=== PATIENT | female | born 1980 | race Caucasian/White ===

== ENCOUNTER 2018-05-28 09:54 | Outpatient (REF) | payer MEDICAID, SELFPAY ==
[2018-05-28 19:03] LABS: Cholesterol 216 mg/dL (50-200); Glucose 97 mg/dL (70-100); HDL Cholesterol 76 mg/dL (40-60); LDL CHOLESTEROL 121 mg/dL (<100); TSH 2.14 uIU/mL (0.358-3.74); Triglyceride 57 mg/dL (30-150)
== END 2018-05-28 10:14 ==
LOC: NCHCN 09:54
PROVIDERS: PCP Family Medicine; Visit Provider Nurse Practitioner Family
DX: N92.6 Irregular menstruation, unspecified (principal); Z00.00 Encounter for general adult medical examination without abnormal findings
CPT/HCPCS: 80061; 82947; 83721; 84443

== ENCOUNTER 2018-09-14 16:15 | Outpatient (REF) | payer MEDICAID, SELFPAY ==
--- NOTE | 2018-09-14 15:30 | SKI_PTH ---
PATIENT: Patito Scott LOC: [facility] U#:[id number] AGE/SX: 37/F ROOM: RE09/14/[address]: Sharonda Hewitt : 1980 BED: DIS: 09/14/2018 SPEC #: [id number] RECD: 09/14/18 17:16 STATUS: KARLA HIGGINS #: [id number] DOMINIK: 09/14/18 15:[address]: Sharonda Hewitt DEPT: Surgical Specimen RECD BY: Lanie Parikh ENTERED: 09/14/18 17:17 SP TYPE: COLLIN SAMANIEGO DR: Camilla Kasper Tissues: 1 - SKIN BIOPSY(SHAVE/PUNCH) Procedures: SKIN LEVEL 4 Comments: [id number]
== END 2018-09-14 16:35 ==
LOC: LBN 16:15
PROVIDERS: PCP Family Medicine; Visit Provider Surgery
DX: D22.5 Melanocytic nevi of trunk (principal)
CPT/HCPCS: 88305

== ENCOUNTER 2019-05-04 15:16 | Outpatient (REF) | payer MEDICAID, SELFPAY ==
[2019-05-04 19:38] LABS: Anion Gap 12.1 mmol/L (3-11); BUN 14 mg/dL (7-18); CO2 23.9 mmol/L (21.0-32.0); CREATININE 0.86 mg/dL (0.55-1.02); Calcium 8.9 mg/dL (8.5-10.1); Chloride 105 mmol/L (98-107); Glucose 96 mg/dL (74-106); Potassium 3.8 mmol/L (3.5-5.1); Sodium 141 mmol/L (136-145); TSH 2.64 uIU/mL (0.36-3.74)
== END 2019-05-04 15:36 ==
LOC: NCHCN 15:16
PROVIDERS: PCP Family Medicine; Visit Provider Nurse Practitioner Family
DX: R00.2 Palpitations (principal)
CPT/HCPCS: 80048; 84443

== ENCOUNTER 2019-06-15 09:50 | Outpatient (REF) | payer MEDICAID, SELFPAY ==
[2019-06-17 15:35] LABS: HBs Antibody, Quant 10.4 mIU/mL (See Note); Hepatitis B Surface Ab Positive (See Note)
== END 2019-06-15 10:10 ==
LOC: NCHCN 09:50
PROVIDERS: PCP Family Medicine; Visit Provider Nurse Practitioner Family
DX: Z11.59 Encounter for screening for other viral diseases (principal)
CPT/HCPCS: 86706

== ENCOUNTER 2020-01-05 01:37 | Outpatient (CLI) | payer MEDICAID, SELFPAY ==
--- NOTE | 2020-01-05 06:18 | DI.NM_ITS ---
EXAM: NM HEPATOBILIARY CCK GRP CLINICAL HISTORY: Abdminal pain, nl US,R10.9. TECHNIQUE: Injected dose: 5 mCi Tc-99 mebrofenin Initial dynamic images: 60 minutes Post-Gallbladder fillin.02 mcg/kg CCK intravenously over a 15min infusion. Addition images: 45 minute dynamic during CCK administration. COMPARISON: US US ABD LTD - ONE ORGAN/QUAD from 12/31/2019 FINDINGS: Normal hepatic transit time. Prompt excretion into the small bowel. Prompt excretion into the gallbladder. There is an abnormally low gall bladder ejection fraction of 13 percent. The patient experienced mil d abdominal discomfort during the infusion. IMPRESSION: Low gallbladder ejection fraction of 13 percent. SNM guidelines: Gallbladder visualization should be present by 3 hours. Delayed yzpsrka-ws-kbyvi darnell sit beyond 60 min raises the suspicion for partial common bile duct (CBD) obstruction. Gallbladder ejection fraction <35% has a good correlation with acalculous disease (i.e., chronic acal culous cholecystitis, cystic duct syndrome, sphincter of Oddi disease).
[2020-01-05] MEDS: Sincalide 5 MCG VIAL 1 MCG IJ (10:42)
== END 2020-01-05 01:57 ==
PROVIDERS: PCP Family Medicine; Visit Provider Surgery
DX: R10.9 Unspecified abdominal pain (principal); K82.8 Other specified diseases of gallbladder; R93.2 Abnormal findings on diagnostic imaging of liver and biliary tract
CPT/HCPCS: 78227

== ENCOUNTER 2020-01-07 07:26 | Outpatient (CLI) | payer MEDICAID, SELFPAY ==
[2020-01-09 00:31] LABS: COVID-19 RT-PCR Result NEGATIVE (Negative)
== END 2020-01-07 07:46 ==
PROVIDERS: PCP Family Medicine; Visit Provider Surgery
DX: Z01.818 Encounter for other preprocedural examination (principal)
CPT/HCPCS: U0003

== ENCOUNTER 2020-01-11 07:57 | Day surgery (SDC) | payer MEDICAID, SELFPAY ==
[2020-01-11] VITALS (13 sets, daily range): BP systolic 99–144; BP diastolic 55–86; PULSE 57–74; RESP 11–18; TEMP 36.1–36.7; O2SAT 96–100
--- NOTE | 2020-01-11 04:29 | ROE_ITS ---
Date of service: 01/11/20 Time of Service: 10:07 Operative Note Operative Note DATE OF PROCEDURE: 01/11/20 PRE-OP DIAGNOSIS: Biliary Dyskinesia POST-OP DIAGNOSIS: same PROCEDURE: Laparoscopic Cholecystectomy SURGEON: Rae Mercer LOCKSTITCH WAISTLINE JOINER: Jocelyn Nunez ANESTHESIA: GETA (ASA 2/Nimco Harding CRNA ) ESTIMATED BLOOD LOSS: 25 PATHOLOGY: other (Gallbladder) COMPLICATIONS: None Patient was transported to: PACU Patient's condition: stable Implants: None Indications: 39 y/o female with a 3 week history of diarrhea, nausea and epigastric pain that radiates into her breast pain and shoulder blade. This pain increases after eating and while lying down increases her discomfort. HIDA scan on (01/05/20) which showed a low, gallbladder ejection fraction of 13% Risks, benefits, complications were reviewed with the patient in the office. Complications include but are not limited to bleeding, infection, injury to stomach, small bowel and large bowel, injury to the pancreas, injury to the common bile duct necessitating drainage and referral to tertiary center for repair, bile leak, adverse reactions to the medications, complications of intubation including a sore throat or injury to the uvula, UT, stroke and even . Questions were entertained and answered to her satisfaction and she wish ed to proceed. No guarantees were given or implied. Findings: Normal appearing Gallbladder Procedure Description: After informed consent was obtained the patient was taken to the operating room, placed in a supine position and monitors were applied. SCDs were applied to her lower extremities and she was placed under general anesthesia and intubated without difficulty. Her abdomen was then prepped and draped in a sterile fashion using ChloraPrep. At this point a timeout was done and the patient's name, date of , procedure type, allergies to medications, metal in her body, antibiotic and DVT prophylaxis were reviewed. Fire risk was assessed. At this point exparel mixed with 0.25% Bupivocaine was injected just above the umbilicus into the dermis and subcutaneous tissue. A 5 mm incision was made with an 11 blade. The skin next to the incision was grasped with penetrating towel clamps and while pulling up on the skin a 5 mm port was placed under direct visualization. The abdomen was insuflated and then 3 more ports were placed. A 12 mm port was placed in the subxiphoid area and two 5 mm ports were placed in the right upper quadrant. The liver was inspected and was normal. The patient's bed was then turned to the left and her head was brought up. The gallbladder was grasped at the body and pushed towards the right shoulder, this allowed me to visualize the neck of the gallbladder. The duodenum was noted to be tethered to the Gallbladder. The adhesion was easily transected with cautery on the Albertina dissector. The neck was grasped and pulled towards the right flank and down allowing me to visualize the lymph node. Using a [place] dissector with cautery the lymph node was gently dissected away from the tissues and the fatty tissue was also dissected away. The cystic duct was identified and it was normal in size. The duct was dissected 360 degrees using the [place] dissector in order for me to visualize its entrance into the gallbladder. Liver was noted behind it. There were no other structures right behind. Critical view was achieved. 3 clips were placed one proximal and 2 distal and the cystic duct was cut. The cystic artery was then identified and dissected 360 degrees. It was located just medial to the cystic duct. It was visualized going into the gallbladder. Once dissected 3 more clips were placed one proximal and 2 distal and the artery was cut. Using the hook dissector with cautery, the gallbladder was dissected away from the liver bed and placed into an Endo Catch bag and pulled through the 12 mm port site. The 12 mm port was placed back into the abdomen under direct visualization. The liver bed was inspected. There was minimal bleeding noted. The bleeding was stopped with cautery. The clips were inspected and were noted to be in good position of the cystic duct and the cystic artery. The rest of the local anesthetic mixture was injected above the liver to help with postoperative right shoulder pain. The 12 mm and the 2 right upper quadrant ports were removed under direct visualization and no bleeding was noted from the fascia. The abdomen was deflated completely and lastly the umbilical port was removed. The skin was cleaned and the incisions were closed with 4-0 Vicryl. The skin was dried and mastasol and steri-strips were applied. 2x2 were applied over all 4 incisions and secured with tegaderm. Needle and sponge counts were correct at the end of the case. At this point the patient was woken up, extubated and taken back to recovery in stable condition. There were no immediate complications.
--- NOTE | 2020-01-11 04:31 | PDOC.DSDIS_ITS ---
Discharge Plan Disposition Patient Disposition: HOME Condition: Good Discharge Details Reason For Visit: Biliary Dyskinesia Attending Provider: Rae Mercer Primary Care Provider: Eneida Cody Home Meds and New Rx's Prescriptions: New acetaminophen [Tylenol] 325 mg capsule 650 mg PO Q6H PRNQty: 30 RF: 0 ibuprofen 600 mg tablet 600 mg PO Q6H PRNQty: 30 RF: 0 oxycodone 5 mg tablet 5 mg PO Q6H PRN (Reason: pain) Qty: 14 RF: 0 Continued multivitamin,tx-minerals tablet 1 tab PO DAILY RF: 0 lorazepam 1 mg tablet 1 mg PO PRN RF: 0 esomeprazole magnesium [Nexium] 40 mg capsule,delayed release(DR/EC) 40 mg PO DAILY RF: 0 fluoxetine 10 mg capsule 10 mg PO DAILY RF: 0 Discontinued ibuprofen [Advil] 200 mg tablet 200 mg PO Q6H PRNRF: 0 Discharge Instructions Instructions: Laparoscopic Cholecystectomy (DC) Additional Instructions: Activity at Home after surgery: 1. Make sure you walk outside at least 4 times per day 2. You should be able to climb a flight of stairs 3. No driving while in pain or taking pain medications 4. No strenuous activity or heavy lifting for 2 weeks (laparoscopic surgery) Diet, Nutrition, & wound healin. Avoid alcohol until after you are recovered from your surgery 2. Make sure to eat plenty of lean protein (meat, fish, eggs, cottage cheese, beans) 3. Eat a variety of fruits and vegetables. Eat plenty of high fiber foods to avoid constipation. 4. Drink plenty of liquids to stay hydrated and avoid constipation Pain Medications: 1. Alternate Tylenol 650 mg and Ibuprofen 600 mg every 3 hours 2. If a narcotic has been prescribed take as directed only for breakthrough pain For Constipation: 1. Take Milk of Magnesia or MiraLax as needed for constipation Other: 1. You may shower daily. Do not scrub the incisions 2. Do not soak the incisions for 1 week 3. You may alternate ice and heat as needed for pain and swelling Wound Care: 1. Keep the incisions clean and dry 2. May remove dressings tomorrow prior to getting into the shower Please call our office if you develop: 1. Fevers >101.5 2. Nausea or Vomiting 3. Worsening pain 4. Redness and thick discharge from the wounds If after hours please call the Hospital at and ask to speak to the on-call surgeon Referrals: Rae Mercer MD [ [facility] STAFF PHYSICIAN] - 01/25/20 9:00 am Activity:: No lifting, pulling or pushing >20 lb x 2 weeks Remove Dressings/Wound Care:: 24 hours Shower/Bathe:: 24 hours Diet:: low fat Discharge Orders Discharge Orders: Discharge Order (Routine); Ordered 01/11/20 Ordered By: Rae Mercer
[2020-01-11] MEDS: Lactated Ringers 1,000 ML 80 ML IV ×2 (08:43→11:37)
[2020-01-11] MEDS: AMPICILLIN/SULBACTAM 3 GM in Normal Saline 100 ML IVPB (09:36)
[2020-01-11] MEDS: Bupivacaine LIPOSOME/PF 133 MG/10 ML VIAL IJ (09:44)
[2020-01-11] MEDS: Bupivacaine 0.25% Pres-Free 10 ML VIAL (09:46)
--- NOTE | 2020-01-11 10:00 | GB_PTH ---
PATIENT: Patito Scott LOC: [facility] U#:[id number] AGE/SX: 39/F ROOM: RE01/11/[address]: Rae Mercer MD : 1980 BED: DIS: 01/11/2020 SPEC #: [id number] RECD: 01/11/20 12:51 STATUS: KARLA REGus #: [id number] DOMINIK: 01/11/20 10:[address]: Rae Mercer DEPT: Surgical Specimen RECD BY: Lanie Parikh ENTERED: 01/11/20 12:52 SP TYPE: GB OTHR DR: Eneida Cody Tissues: 1 - GALLBLADDER Procedures: GROSS AND MICRO LEVEL 3 Comments: [id number]
[2020-01-11] MEDS: FAMOTIDINE 20 MG/50 ML BAG 200 MG (11:20)
[2020-01-11] MEDS: fentaNYL 100 MCG/2 ML VIAL IVP (11:45)
== END 2020-01-11 14:35 | disposition home or self-care (01) ==
LOC: SUR 07:57
PROVIDERS: PCP Nurse Practitioner Family; Visit Provider Surgery
PROC: 0FT44ZZ Resection of Gallbladder, Percutaneous Endoscopic Approach (ICD-10-PCS; CPT 47562; principal; 2020-01-11 09:30)
DX: K82.8 Other specified diseases of gallbladder (principal); K21.9 Gastro-esophageal reflux disease without esophagitis
CPT/HCPCS: 47562; 88304; J0295; J1100; J1885; J2001; J2405; J2704; J3010

== ENCOUNTER 2020-01-21 08:06 | Outpatient (CLI) | payer MEDICAID, SELFPAY ==
[2020-01-22 17:28] LABS: COVID-19 RT-PCR Result NEGATIVE (Negative)
== END 2020-01-21 08:26 ==
PROVIDERS: PCP Nurse Practitioner Family; Visit Provider Surgery
DX: Z01.818 Encounter for other preprocedural examination (principal)
CPT/HCPCS: U0003

== ENCOUNTER 2020-01-25 07:15 | Day surgery (SDC) | payer MEDICAID, SELFPAY ==
--- NOTE | 2020-01-25 06:57 | W.PM.ENDDOP ---
Date of service: 01/25/20 Time of Service: 09:01 Endoscopy Report DATE OF PROCEDURE: 01/25/20 PRE-OP DIAGNOSIS: Dyspepsia POST-OP DIAGNOSIS: other (Gastritis, esophagitis) PROCEDURE: EGD with biopsy SURGEON: Rae Mercer ANESTHESIA: other (General/ASA 2/Landon Kolb, CLINICAL SCIENCE CONSULTANT) ESTIMATED BLOOD LOSS: 3 PATHOLOGY: other (Antrum bx, gastric body bx, GE junction bx) COMPLICATIONS: None DISPOSITION: same day INDICATIONS: Patito is 1 week postop and continues to have epigastric pain as well as Nausea. She now describes a burning sensation into her chest especially when she lays down at night. Has been taking Zofran She has a history of GERD. I suspect her reflux is out of control. FINDINGS: Erosive gastritis and esophagitis PROCEDURE DESCRIPTION: After informed consent was obtained the patient was take to the procedure room and placed in a supine position. Monitors were applied and a time out was done. The patients name, date of , procedure type, allergies to medications and metal in their body was reviewed. A bite block was placed and the patient was sedated. Once sedated and comfortable the gastroscope was advanced through the oropharynx which was grossly normal into the esophagus. The proximal and mid-esophagus were normal. In the distal esophagus there was inflammation noted. The scope was advanced into the stomach and through the pylorus into the 3rd portion of the duodenum. The duodenum was noted to be normal. The scope was retracted back into the stomach. There was moderate to severe inflammation noted. Biopsies were done in the antrum and body to rule out H. pylori. There were no ulcers. The scope was retroflexed. The cardia and fundus were noted to also be inflamed. There was no hiatal hernia noted. The scope was retracted back into the esophagus and biopsies were done of the GE junction to rule out Tobar's. The Z line was regular. The GE junction was at 38 cm. There was mild inflammation noted. The scope was removed and the patient was woken up and taken back to [facility] in stable condition. Follow up: 2 weeks. I will increase her Nexium to 40 mg BID. If no improvement in her symptoms I may need to refer to Gastroenterology.
--- NOTE | 2020-01-25 06:59 | W.PM.DSUDISC ---
Discharge Plan Disposition Patient Disposition: HOME Condition: Good Discharge Details Reason For Visit: dyspepsia Attending Provider: Rae Mercer Primary Care Provider: Eneida Cody Home Meds and New Rx's Prescriptions: New esomeprazole magnesium [Nexium] 40 mg capsule,delayed release(DR/EC) 40 mg PO BID Qty: 60 RF: 3 ondansetron HCl [Zofran] 4 mg tablet 4 mg PO Q6H PRN (Reason: nausea and vomiting) Qty: 30 RF: 0 Continued multivitamin,tx-minerals tablet 1 tab PO DAILY RF: 0 lorazepam 1 mg tablet 1 mg PO PRN RF: 0 fluoxetine 10 mg capsule 10 mg PO DAILY RF: 0 acetaminophen [Tylenol] 325 mg capsule 650 mg PO Q6H PRNQty: 30 RF: 0 oxycodone 5 mg tablet 5 mg PO Q6H PRN (Reason: pain) Qty: 14 RF: 0 Discontinued sucralfate [Carafate] 1 gram tablet 1 gm PO TID 14 Days Qty: 42 RF: 0 esomeprazole magnesium [Nexium] 40 mg capsule,delayed release(DR/EC) 40 mg PO DAILY RF: 0 sucralfate 1 gram tablet 1 gm PO TID Qty: 42 RF: 0 ibuprofen 600 mg tablet 600 mg PO Q6H PRNQty: 30 RF: 0 ondansetron HCl [Zofran] 4 mg tablet 4 mg PO Q6H Qty: 7 RF: 0 Discharge Instructions Instructions: Diet for Stomach Ulcers and Gastritis (ED), Gastritis (DC), Esophagitis (DC) Additional Instructions: Findings: Inflammation of the stomach and esophagus Follow up: 02/01/2020 Please call if you develop: fevers >101.5 Nausea or Vomiting Abdominal pain that is not transient DAY SURGERY UNIT POST ENDOSCOPY INSTRUCTIONS 1. Because there will be medication in your system for the next 24 hours, you may feel a little sleepy. Your coordination will be affected. Therefore: a. Do not drive or operate dangerous equipment for 24 hours. b. Do not drink alcohol beverages for 24 hours (not even beer). c. Plan to go home and rest for the day. 2. Generally there are no restrictions on your activity after a day or so has gone by, but you may feel a bit fatigued for a few days. 3 After you arrive home you may have a light meal and return to a normal diet as you can tolerate it without feeling sick to your stomach. 4. After surgery, you may feel pain or discomfort. This should be only transient, but if it persists please contact your doctor. 5. If there are any questions regarding the findings of your procedure, please feel free to contact your doctor. 6. If you are unable to contact your doctor with a problem, contact the hospital at [phone]. 7. Continue all your regular medications unless directed otherwise. I understand the above instructions and have no questions. Signature of Patient or Responsible Adult Escort Date/Time Name of Responsible Adult Escort Signature of Nurse Date/Time Activity:: Activity as Tolerated Diet:: As Tolerated Discharge Orders Discharge Orders: Discharge Order (Routine); Ordered 01/25/20 Ordered By: Rae Mercer
[2020-01-25 07:25] VITALS: BP 135/90; PULSE 86; RESP 16; TEMP 36.5; O2SAT 98
[2020-01-25] MEDS: Lactated Ringers 1,000 ML 80 ML IV (07:53)
--- NOTE | 2020-01-25 08:36 | STOM_PTH ---
PATIENT: Patito Scott LOC: [facility] U#:[id number] AGE/SX: 39/F ROOM: RE01/25/[address]: Rae Mercer MD : 1980 BED: DIS: 01/25/2020 SPEC #: [id number] RECD: 01/25/20 12:14 STATUS: KARLA REGus #: [id number] DOMINIK: 01/25/20 08:[address]: Rae Mercer DEPT: Surgical Specimen RECD BY: Lanie Parikh ENTERED: 01/25/20 12:16 SP TYPE: STOMACH OTHR DR: Eneida Cody Tissues: 1 - STOMACH BIOPSY 2 - STOMACH BIOPSY 3 - ESOPHAGUS BIOPSY Procedures: GROSS AND MICRO LEVEL 4 Comments: [id number]
[2020-01-25 09:30] VITALS: BP 139/92; PULSE 83; RESP 17; TEMP 36.3; O2SAT 100
[2020-01-25 09:47] LABS: Abs Immature Grans 0.02 10^3/uL (0.0-0.06); Absolute Basophil Count 0.04 10^3/uL (0.0-0.2); Absolute Eosinophil Count 0.12 10^3/uL (0.0-0.7); Absolute Lymphocyte Count 1.34 10^3/uL (1.2-3.4); Absolute Monocyte Count 0.45 10^3/uL (0.1-0.8); Absolute Neutrophil Count 3.27 10^3/uL (1.2-6.7); Basophils % 0.8; Eosinophils % 2.3; HCT 40.5 % (36.0-46.0); HGB 13.2 g/dL (11.2-15.7); Immature Grans % 0.4; Lymphocytes % 25.6; MCH 31.1 pg (27.0-33.0); MCHC 32.6 % (32.0-36.0); MCV 95.3 fL (80-95); MPV 10.9 fL (8.0-11.0); Monocytes % 8.6; Neutrophils % 62.3; Nucleated RBC 0 %; Platelet Count 221 10^3/uL (130-400); RBC 4.25 10^6/uL (3.93-5.22); RDW-SD 41.7 fL; WBC 5.24 10^3/uL (4.4-10.8)
[2020-01-25] MEDS: Ondansetron 4 MG/2 ML VIAL 8 MG IVP (09:51)
[2020-01-25 10:05] LABS: ALT 21 U/L (14-59); AST 18 U/L (15-37); Alkaline Phosphatase 70 U/L (46-116); Anion Gap 8.5 mmol/L (3-11); BUN 8 mg/dL (7-18); Bilirubin, Total 0.4 mg/dL (0.2-1.0); CO2 28.5 mmol/L (21.0-32.0); CREATININE 0.87 mg/dL (0.55-1.02); Calcium 8.7 mg/dL (8.5-10.1); Chloride 105 mmol/L (98-107); Glucose 103 mg/dL (74-106); Lipase 260 U/L (73-393); Potassium 3.8 mmol/L (3.5-5.1); Sodium 142 mmol/L (136-145); Total Protein 7.3 g/dL (6.4-8.2)
== END 2020-01-25 10:26 | disposition home or self-care (01) ==
LOC: SUR 07:16
PROVIDERS: PCP Nurse Practitioner Family; Visit Provider Surgery
PROC: 0DJ68ZZ Inspection of Stomach, Via Natural or Artificial Opening Endoscopic (ICD-10-PCS; CPT 43235; principal; 2020-01-25 08:15)
DX: K30 Functional dyspepsia (principal); K31.89 Other diseases of stomach and duodenum; K21.0 Gastro-esophageal reflux disease with esophagitis; K29.00 Acute gastritis without bleeding
CPT/HCPCS: 43239; 36415; 80053; 81025; 83690; 88305; 85025; J2001; J2405; J2704

== ENCOUNTER 2020-02-11 04:34 | Outpatient (CLI) | payer MEDICAID, SELFPAY ==
--- NOTE | 2020-02-11 | DI.CT_ITS ---
EXAM: CT ABDOMEN PELVIS W CLINICAL HISTORY: ABD PAIN GENERALIZED, R10.84 TECHNIQUE: Imaging Protocol: Axial computed tomography images with coronal and sagittal reformatted images were created and reviewed CONTRAST MATERIAL: Intravenous: Omnipaque 350 Contrast volume:100 mL Oral: Yes COMPARISON: No exams were available for comparison FINDINGS: ABDOMEN: Lung Bases: Normal where visualized. Liver: Normal density. No measurable mass. Portal, Superior Mesenteric, and Splenic Veins: Unremarkable. Gallbladder and Biliary Tract: Post cholecystectomy. No biliary ductal dilatation. Pancreas: Normal density, no abnormal calcifications or inflammatory process. Spleen: Normal. Adrenals: No masses seen. Kidneys: Normal size, contour and axis. Punctate nonobstructing stones are seen in the kidneys bilate rally. No masses seen. Abdominal Aorta: Abdominal portion non-dilated. Bowel: No obstruction or bowel wall thickening. No evidence of appendicitis. Peritoneal Cavity: No ascites, collection or mesenteric inflammatory response. Lymph Nodes: Within normal limits. Bones: L5 spondylolysis but no evidence of spondylolisthesis. Soft Tissues: Unremarkable. PELVIS: Bladder: Symmetric distention, no gross wall thickening. Reproductive Organs: Unremarkable as visualized. Lymph Nodes: Within normal limits. Bones: See above. IMPRESSION: 1. Bilateral nephrolithiasis. No hydronephrosis. 2. Status post cholecystectomy. 3. No acute abdominal or pelvic process. RADIATION DOSE DELIVERED: Total DLP DATA REPOSITORY: All CT scans at this facility are submitted to the National Radiology Data Registry (NRDR) Dose Index Registry (DIR) with the [employer] (A[employer]). RADIATION OPTIMIZATION: All CT scans at this facility use at least one of these dose optimization te chniques: automated exposure control; mA and/or kV adjustment per patient size (includes targeted exa ms where dose is matched to clinical indication); or iterative reconstruction.
[2020-02-11] MEDS: Omnipaque 350 MG/ML 50 ML BTL IJ (12:40)
[2020-02-11] MEDS: Omnipaque 350 MG/ML 100 ML BTL IV (13:55)
[2020-02-11] MEDS: Normal Saline - Diluent 50 ML VIAL IV (13:56)
[2020-02-11] MEDS: Normal Saline Flush 10 ML SYR IVP (13:57)
== END 2020-02-11 04:54 ==
PROVIDERS: PCP Nurse Practitioner Family; Visit Provider Nurse Practitioner Family
DX: N20.0 Calculus of kidney (principal); Z90.49 Acquired absence of other specified parts of digestive tract
CPT/HCPCS: 74177; J3490; Q9967

== ENCOUNTER 2020-06-30 19:29 | Outpatient (REF) | payer MEDICAID, SELFPAY ==
[2020-06-30 19:55] LABS: Abs Immature Grans 0.01 10^3/uL (0.0-0.06); Absolute Basophil Count 0.03 10^3/uL (0.0-0.2); Absolute Eosinophil Count 0.11 10^3/uL (0.0-0.7); Absolute Lymphocyte Count 1.26 10^3/uL (1.2-3.4); Absolute Monocyte Count 0.54 10^3/uL (0.1-0.8); Absolute Neutrophil Count 3.39 10^3/uL (1.2-6.7); Basophils % 0.6; Eosinophils % 2.1; HCT 41.6 % (36.0-46.0); HGB 13.6 g/dL (11.2-15.7); Immature Grans % 0.2; Lymphocytes % 23.6; MCH 30.8 pg (27.0-33.0); MCHC 32.7 % (32.0-36.0); MCV 94.3 fL (80-95); MPV 10.6 fL (8.0-11.0); Monocytes % 10.1; Neutrophils % 63.4; Nucleated RBC 0 %; Platelet Count 246 10^3/uL (130-400); RBC 4.41 10^6/uL (3.93-5.22); RDW 12.4 % (11.7-14.6); RDW-SD 43.3 fL; WBC 5.34 10^3/uL (4.4-10.8)
[2020-06-30 20:19] LABS: ALT 16 U/L (14-59); AST 16 U/L (15-37); Albumin 4.1 g/dL (3.4-5.0); Alkaline Phosphatase 85 U/L (46-116); Anion Gap 9.8 mmol/L (3-11); BUN 13 mg/dL (7-18); Bilirubin, Total 0.6 mg/dL (0.2-1.0); CO2 27.2 mmol/L (21.0-32.0); CREATININE 0.92 mg/dL (0.55-1.02); Calcium 8.9 mg/dL (8.5-10.1); Chloride 102 mmol/L (98-107); Glucose 99 mg/dL (74-106); Potassium 4.2 mmol/L (3.5-5.1); Sodium 139 mmol/L (136-145); TSH (W/Ref FT4) 2.17 uIU/mL (0.36-3.74); Total Protein 7.4 g/dL (6.4-8.2)
== END 2020-06-30 19:49 ==
LOC: NCHCN 19:29
PROVIDERS: PCP Physician Assistant; Visit Provider Physician Assistant
DX: R00.2 Palpitations (principal); R07.89 Other chest pain
CPT/HCPCS: 80053; 84443; 85025

== ENCOUNTER 2020-07-05 03:55 | Outpatient (RCR) | payer MEDICAID, SELFPAY | END 2020-07-09 23:59 | disposition home or self-care (01) | LOC: RT 03:55 | PROVIDERS: PCP Physician Assistant; Visit Provider Physician Assistant | DX: R69 Illness, unspecified (principal) ==

== ENCOUNTER 2020-07-11 07:17 | Outpatient (RCR) | payer MEDICAID, SELFPAY ==
--- OUTSIDE RECORDS SUMMARY | 2020-07-11 07:21 | XMS_ITS ---
:1980 Author Care Team Providers Name Role Phone PAWEL RAMOS NP Primary Care Provider [phone] AJ DOHERTY MD General Surgeon [phone] Allergies Code Code System Name Reaction Severity Status Onset Effexor ? ? Active ? Medications Name Status Start Date Stop Date ? ? amitriptyline 10 mg tablet Active ? Not a vailable Take 1 tablet every day by oral route at bedtime. Compazine 10 mg tablet Completed ? 0 Take 1 tablet 3 times a day by oral route as needed. cyclobenzaprine 10 mg tablet Completed ? Diflucan 150 mg tablet Completed 01/31/2015 5 1 (one) Tablet: one time dose famotidine 20 mg tablet Completed ? 03/03/20 20 Take 1 tablet twice a day by oral route for 14 days. fluoxetine 10 mg capsule Active ? Not vaishali ilable Take 1 capsule every day by oral route. lorazepam 1 mg tablet Active ? Not availa ble multivitamin Active ? Not available one daily Nexium 40 mg capsule,delayed release Completed ? 02/16/2020 Take 1 capsule every day by oral route. -Folic Acid 27 mg-1 mg tablet Completed 01/11/2016 08/13/2016 1 (one) Tablet(s): daily sertraline 50 mg tablet Completed ? 12/27/19 20 sucralfate 1 gram tablet Completed ? 020 Take 1 tablet 4 times a day by oral route for 14 days. tramadol 50 mg tablet Active ? Not availa ble Take 1 tablet as needed by oral route at bedtime. Zofran 4 mg tablet Active ? Not available Take 2 tablets twice a day by oral route as needed. Problems Name Status Onset Date Source ? Gastroesophageal Reflux Disease Active 04/02/2019 ? Generalized Anxiety Disorder Active ? His tory Depressive Disorder Active ? History Irregular Periods Active ? History Care Unknown ? History Procedures Date Name Performed by ? 06/24/2016 Bilateral Complete Salpingectomy Informa tion not available 06/24/2016 Delivery Information not avai lable 06/09/2014 Dilation and Curettage Information not a vailable Notes: Retained Placenta 10/28/2010 Delivery Information not avai lable Notes: severe preeclampsia with HELLP 04/02/2019 MAMMO, Diagnostic, Tomosynthesis, [facility] Radiology (Internal) Bilateral [address] [place] [address] (Work Place) 04/02/2019 US, Breast, Unilateral, [facility] Radiology (Internal) [address] [place] [address] (Work Place) 12/29/2019 US, Abdomen, Limited [facility] Radiology (Internal) [address] [place] [address] (Work Place) 01/04/2020 NM, Hepatobiliary Scan, W/ [facility] Radiology (Internal) [address] [place] [address] (Work Place) Results Lab Results Date Name Specimen Result Interpretation Description Value Range Status Address ? 04/14/2020 Sodium, UR ? Vol, 24HR U 2065 mL ? Final [place] [facility] L [facility] (Internal) : [address] ? ? UR ? Na, U 55 mmol/L 30-90 Final [place] mmol/L [facility] L ab (Internal) : [address] ? ? UR ? Na, 24HR U 114 mol/L 40-220 Final No rth mol/L [facility] L ab (Internal) : [address] 04/14/2020 Creatinine UR ? Vol, 24HR U 2065 mL ? Fi nal [place] [facility] (Internal) : [address] ? ? UR ? Crea, U 40 mg/dL 3-125 Final [place] mg/dL [facility] L ab (Internal) : [address] ? ? UR ? Crea, 24HR [phone] Final Nor th U mg/24HR mg/24HR [facility] L ab (Internal) : [address] 04/14/2020 Uric Acid, UR ? Vol, 24HR U 2065 mL ? Fi nal [place] [facility] (Internal) : [address] ? ? UR ? Uric Acid, 15.4 ? Final [facility] U mg/dL [facility] ([facility] : [address] ? ? UR ? Urc a, 24HR 318 250-750 Final Nor th U mg/24HR mg/24HR [facility] ([facility] : [address] 04/14/2020 Calcium, UR ? Vol, 24HR U 2065 mL ? Madeline l [place] [facility] (Internal) : [address] ? ? UR ? Ca, U 5.6 mg/dL 2.0-18.0 Final [place] mg/dL [facility] L ab (Internal) : [address] ? ? UR ? Ca, 24HR U 116 100-300 Final Nort h mg/24HR mg/24HR [facility] ([facility] : [address] 04/14/2020 Magnesium, UR ? Vol, 24HR U 2065 mL ? Fi nal [place] [facility] (Internal) : [address] ? ? UR ? mg, U <1.2 1.0-13.0 Final [place] mg/dL mg/dL [facility] L ab (Internal) : [address] ? ? UR Low mg, 24HR U 25 73-122 Final [place] mg/(24.h) mg/(24.h) Coun [facility] Hospital L ab (Internal) : [address] 04/14/2020 Phosphorus UR ? Vol, 24HR U 2065 mL ? Fi nal [place] , [facility] (Internal) : [address] ? ? UR ? Phos, U 23.4 20.0-60.0 Final [place] mg/dL mg/dL [facility] L ab (Internal) : [address] ? ? UR ? Phos, 24HR [phone] Final Nor th U mg/24HR mg/24HR [facility] ([facility] : [address] 04/14/2020 Citrate, UR ? Citrate 378 mg/24 292 - Final [place] Quantitati Excretion, h 1191 Co untry ve, 24 hr, U mg/24 h Hospita l Lab 24-Hour (Internal ): Urine [address] t ? ? UR ? Collection 24 h ? Final [facility] L ab (Internal) : [address] ? ? UR ? Urine 2065 mL ? Final [facility] L ab (Internal) : [address] 04/14/2020 Oxalate, UR ? Oxalate, 24 0.19 0.11 - Final [place] Quantitati hr, U mmol/24 h 0.46 Cou ntry ve, (Mmol/24 hr) mmol/24 h H ospital Lab 24-Hour (Internal ): Urine [address] t ? ? UR ? Oxalate, 24 16.7 9.7 - Final Nort h hr, U (mg/24 mg/24 h 40.5 Cou ntry hr) mg/24 h Hospital Lab (Internal) : [address] t ? ? UR ? Collection 24 h ? Final [facility] L ab (Internal) : [address] t ? ? UR ? Urine 2065 mL ? Final [facility] L ab (Internal) : [address] 03/03/2020 Urinalysis Urine ? Color Yellow ? ? P_ urology: , clean [address] [facility] [employer], [employer] ? ? Urine ? Appearance Clear ? ? P_uro logy: clean [facility] ? ? Urine ? Glucose Normal ? ? P_urolog y: clean [address] [facility] [place], [place] ? ? Urine ? Bilirubin Negative ? ? P_ur ology: clean [address] [employer], [place] ? ? Urine ? Ketones Negative ? ? P_urol ogy: clean [address] [employer], [place] ? ? Urine ? Specific 1.005 ? ? P_urolo gy: clean [place] 41 Med[address] l [facility] ? ? Urine ? Blood Negative ? ? P_urolog y: clean [address] [employer], [place] ? ? Urine ? Ph 7.0 ? ? P_urology: clean [address] [employer], [place] ? ? Urine ? Protein Negative ? ? P_urol ogy: clean 41 Medical catch [facility] ? ? Urine ? Urobilinoge 0.2 ? ? P_ur ology: clean n 41 Medical [facility] ? ? Urine ? Nitrite negative ? ? P_urol ogy: clean 41 [facility] ? ? Urine ? Leukocyte Negative ? ? P_ur ology: clean Esterase 41 Medic al [facility] 04/02/2019 Pap Test, MISC - Hpv see ? Final Nor th Thinprep, report [facility]erv[facility] Hospital Lab (Internal) : [address] t ? ? MISC - Pap see ? Final [place] report [facility] L ab (Internal) : [address] t ? ? MISC - Report (added) ? Corrected [place] results Count includes the [facility] Hospital L ab (Internal) : [address] t 04/25/2018 CBC W/ BLD Low Wbc 4.4 5.0-10.0 Final Nort h Auto Diff 10*3/uL 10*3/uL Count Hospital L ab (Internal) : [address] t ? ? BLD - Rbc 4.15 4.10-5.30 Final [place] 10*6/uL 10*6/uL [facility] Hospital L ab (Internal) : [address] t ? ? BLD - Hgb 13.2 g/dL 12.0-16.0 Final Nort h g/dL [facility] Hospital L ab (Internal) : [address] t ? ? BLD - Hct 39.8 % 37.0-47.0 Final [place] % [facility] L ab (Internal) : [address] t ? ? BLD - Mcv 95.9 fL 80.0-96.0 Final [facility] Hospital L ab (Internal) : [address] t ? ? BLD - Mch 31.8 pg 26.0-32.0 Final [place] pg [facility] L ab (Internal) : [address] t ? ? BLD - Mchc 33.2 g/dL 31.0-35.0 Final Nort h g/dL [facility] L ab (Internal) : [address] t ? ? BLD - Rdw 12.4 % 11.5-14.5 Final [facility] Hospital L ab (Internal) : [address] ? ? BLD - Plt 199 130-450 Final [facility] 10*3/uL 10*3/uL [facility] (Internal) : [address] ? ? BLD - Anc 2.73 ? Final [place] 10*3/uL [facility] L ab (Internal) : [address], [place] t ? ? BLD - Neutro 62.3 % 40.0-75.0 Final [facility] Hospital L ab (Internal) : [address] ? ? BLD - Lymph 24.7 % 20.0-50.0 Final [facility] Hospital L ab (Internal) : [address] ? ? BLD - [place] 9.6 % 2.0-10.0 Final [facility] Hospital L ab (Internal) : [address] jesus ? ? BLD - Eos 2.5 % 1.0-6.0 % Final [facility] Hospital L ab (Internal) : [address], [place] ? ? BLD - Baso 0.7 % 0.0-1.0 % Final [facility] Hospital L ab (Internal) : [address] ? ? BLD - Ig 0.2 % 0.0-0.9 % Final [facility] L ab (Internal) : [address] 04/25/2018 CMP, Serum S High g/r 107 mg/dL 74-106 Final [place] or Plasma mg/dL [facility] L ab (Internal) : [address] ? ? S - Bun 12 mg/dL 7-17 Final [place] mg/dL [facility] L ab (Internal) : [address] ? ? S - Crea 0.80 0.52-1.04 Final [place] mg/dL mg/dL [facility] L ab (Internal) : [address] ? ? S - Ca 9.1 mg/dL 8.4-10.2 Final [place] mg/dL [facility] Hospital L ab (Internal) : [address], [place] ? ? S - Na 142 137-145 Final [place] mmol/L mmol/L [facility] L ab (Internal) : [address] ? ? S - K 4.2 3.5-5.1 Final [place] mmol/L mmol/L [facility] L ab (Internal) : [address] ? ? S - Cl 106 98-107 Final [place] mmol/L mmol/L [facility] L ab (Internal) : [address] ? ? S - Tco2 28.0 22.0-30.0 Final [place] mmol/L mmol/L [facility] L ab (Internal) : [address] ? ? S - Tp 7.3 g/dL 6.3-8.2 Final [place] g/dL [facility] Hospital L ab (Internal) : [address] ? ? S - Alb 4.2 g/dL 3.5-5.0 Final [place] g/dL [facility] L ab (Internal) : [address] ? ? S - Tbil 0.5 mg/dL 0.2-1.3 Final [place] mg/dL [facility] L ab (Internal) : [address] ? ? S - Alp 55 U/L 50-136 Final [place] U/L [facility] L ab (Internal) : [address] ? ? S - Alt (Sgpt) <10 U/L 9-52 U/L Final No rth [facility] Hospital L ab (Internal) : [address] jesus ? ? S - Ast (Sgot) 22 U/L 14-36 U/L Final No rth [facility] L ab (Internal) : [address] 04/25/2018 Troponin S - Trop <0.06 0.00-0.06 Final N orth I, Serum NG/mL NG/mL [facility] or Plasma Hospita l Lab (Internal) : [address] 04/25/2018 TSH, Serum S - Tsh 3.10 0.47-4.68 Final [place] or Plasma u[IU]/mL u[IU]/mL [facility] Hospital L ab (Internal) : [address] 07/18/2017 UR ? Hcgu negative negative Final [place] Test, [facility] L ab (Internal) : [address] t 07/18/2017 Urinalysis UR ? UA-color yellow pale Final [facility] yellow [facility] Dipstick, Hospita l Lab Reflex (Internal) : Micro [address] ? ? UR ? UA-appear clear clear Final [facility] L ab (Internal) : [address] ? ? UR ? UA-spec 1.020 1.003-1.0 Final [place] Grav 35 [facility] L ab (Internal) : [address] ? ? UR ? UA-pH 6.0 [pH] 4.6-8.0 Final [place] [pH] [facility] L ab (Internal) : [address] ? ? UR ? UA-leuk Est negative negative Final [facility] L ab (Internal) : [address] ? ? UR ? UA-nitrite negative negative Final N orth [facility] L ab (Internal) : [address] t ? ? UR ? UA-prot negative negative Final [facility] ab (Internal) : [address] ? ? UR ? UA-gluc negative negative Final Nort [facility] L ab (Internal) : [address] t ? ? UR ? UA-ketone negative negative Final No rth [facility] L ab (Internal) : [address] t ? ? UR ? UA-urobil normal normal Final [facility] ab (Internal) : [address] ? ? UR ? UA-bili negative negative Final Nort [facility] L ab (Internal) : [address] ? ? UR ? UA-blood negative negative Final [facility] L ab (Internal) : [address] t 07/18/2017 Troponin S ? Trop <0.06 0.00-0.06 Final N orth I, Serum NG/mL NG/mL [facility] Lab [facility] : [address] t 07/18/2017 Lipase, S ? Lip 171 U/L 23-300 Final Nort h Serum or U/L [facility] L ab (Internal) : [address] t 07/18/2017 CMP, Serum S High g/r 111 mg/dL 74-106 Final [facility] or Plasma mg/dL [facility] (Internal[facility] : [address] ? ? S ? Bun 14 mg/dL 7-17 Final [place] mg/dL [facility] (Internal) : [address] ? ? S ? Crea 0.90 0.52-1.04 Final [place] mg/dL mg/dL [facility] (Internal) : [address] ? ? S ? Ca 9.3 mg/dL 8.4-10.2 Final [place] mg/dL [facility] (Internal) : [address] ? ? S ? Na 140 137-145 Final [place] mmol/L mmol/L [facility] (Internal) : [address] ? ? S ? K 3.9 3.5-5.1 Final [place] mmol/L mmol/L [facility] (Internal) : [address] ? ? S ? Cl 104 98-107 Final [place] mmol/L mmol/L [facility] (Internal) : [address] ? ? S ? Tco2 25.0 22.0-30.0 Final [place] mmol/L mmol/L [facility] (Internal) : [address] ? ? S ? Tp 7.8 g/dL 6.3-8.2 Final [place] g/dL [facility] (Internal) : [address] ? ? S ? Alb 4.5 g/dL 3.5-5.0 Final [place] g/dL [facility] (Internal) : [address] ? ? S ? Tbil 0.3 mg/dL 0.2-1.3 Final [place] mg/dL [facility] (Internal) : [address] t ? ? S ? Alp 74 U/L 50-136 Final [place] U/L [facility] ([facility]) : [address] t ? ? S ? Alt (Sgpt) 27 U/L 9-52 U/L Final [facility] (Internal) : [address] ? ? S ? Ast (Sgot) 28 U/L 14-36 U/L Final No rth [facility] Hospital L ab (Internal) : [address] t 07/18/2017 CBC W/ BLD Low Wbc 4.9 5.0-10.0 Final Nort h Auto Diff 10*3/uL 10*3/uL [facility] L ab (Internal) : [address] t ? ? BLD ? Rbc 4.41 4.10-5.30 Final [place] 10*6/uL 10*6/uL [facility] L ab (Internal) : [address] t ? ? BLD ? Hgb 13.6 g/dL 12.0-16.0 Final Nort h g/dL [facility] L ab (Internal) : [address] t ? ? BLD ? Hct 41.5 % 37.0-47.0 Final [facility] L ab (Internal) : [address] ? ? BLD ? Mcv 94.1 fL 80.0-96.0 Final [facility] L ab (Internal) : [address] ? ? BLD ? Mch 30.8 pg 26.0-32.0 Final [facility] L ab (Internal) : [address] ? ? BLD ? Mchc 32.8 g/dL 31.0-35.0 Final Nort h g/dL [facility] Hospital L ab (Internal) : [address] ? ? BLD ? Rdw 13.3 % 11.5-14.5 Final [facility] L ab (Internal) : [address] ? ? BLD ? Plt 222 130-450 Final [place] 10*3/uL 10*3/uL [facility] L ab (Internal) : [address] ? ? BLD ? Anc 3.10 ? Final [place] 10*3/uL [facility] L ab (Internal) : [address] ? ? BLD ? Neutro 63.3 % 40.0-75.0 Final [facility] L ab (Internal) : [address] ? ? BLD ? Lymph 23.9 % 20.0-50.0 Final [facility] L ab (Internal) : [address] ? ? BLD ? [place] 9.6 % 2.0-10.0 Final [facility] L ab (Internal) : [address] ? ? BLD ? Eos 2.4 % 1.0-6.0 % Final [facility] L ab (Internal) : [address] ? ? BLD ? Baso 0.6 % 0.0-1.0 % Final [facility] L ab (Internal) : [address] ? ? BLD ? Ig 0.2 % 0.0-0.9 % Final [facility] L ab (Internal) : [address] 07/18/2017 UR ? Hcgu negative negative Final [facility] ([facility] : [address] 07/18/2017 Urinalysis UR ? UA-color yellow pale Final [facility], [facility] Lab Reflex (Internal) : Micro [address] ? ? UR ? UA-appear clear clear Final [facility] L ab (Internal) : [address] ? ? UR ? UA-spec 1.020 1.003-1.0 Final [place] Grav 35 [facility] L ab (Internal) : [address] ? ? UR ? UA-pH 6.0 [pH] 4.6-8.0 Final [place] [pH] [facility] L ab (Internal) : [address] ? ? UR ? UA-leuk Est negative negative Final [facility] L ab (Internal) : [address] ? ? UR ? UA-nitrite negative negative Final N orth [facility] L ab (Internal) : [address] ? ? UR ? UA-prot negative negative Final [facility] L ab (Internal) : [address] ? ? UR ? UA-gluc negative negative Final Nort [facility] L ab (Internal) : [address] ? ? UR ? UA-ketone negative negative Final No rth [facility] L ab (Internal) : [address] ? ? UR ? UA-urobil normal normal Final [facility] L ab (Internal) : [address] ? ? UR ? UA-bili negative negative Final Nort h [facility] L ab (Internal) : [address] ? ? UR ? UA-blood negative negative Final Nor [facility] L ab (Internal) : [address] 07/18/2017 Troponin S ? Trop <0.06 0.00-0.06 Final N orth I, Serum NG/mL NG/mL [facility] or Plasma Hospita l Lab (Internal) : [address] 07/18/2017 Lipase, S ? Lip 171 U/L 23-300 Final Nort h Serum or U/L [facility] Hospital L ab (Internal) : [address] 07/18/2017 CMP, Serum S High g/r 111 mg/dL 74-106 Final [place] or Plasma mg/dL [facility] L ab (Internal) : [address] ? ? S ? Bun 14 mg/dL 7-17 Final [place] mg/dL [facility] L ab (Internal) : [address] ? ? S ? Crea 0.90 0.52-1.04 Final [place] mg/dL mg/dL [facility] L ab (Internal) : [address] ? ? S ? Ca 9.3 mg/dL 8.4-10.2 Final [place] mg/dL [facility] L ab (Internal) : [address] ? ? S ? Na 140 137-145 Final [place] mmol/L mmol/L [facility] Hospital L ab (Internal) : [address] ? ? S ? K 3.9 3.5-5.1 Final [place] mmol/L mmol/L [facility] Hospital L ab (Internal) : [address] ? ? S ? Cl 104 98-107 Final [place] mmol/L mmol/L [facility] Hospital L ab (Internal) : [address] ? ? S ? Tco2 25.0 22.0-30.0 Final [place] mmol/L mmol/L [facility] Hospital L ab (Internal) : [address] ? ? S ? Tp 7.8 g/dL 6.3-8.2 Final [place] g/dL [facility] L ab (Internal) : [address] ? ? S ? Alb 4.5 g/dL 3.5-5.0 Final [place] g/dL [facility] L ab (Internal) : [address] ? ? S ? Tbil 0.3 mg/dL 0.2-1.3 Final [place] mg/dL [facility] L ab (Internal) : [address] ? ? S ? Alp 74 U/L 50-136 Final [place] U/L [facility] Hospital L ab (Internal) : [address] ? ? S ? Alt (Sgpt) 27 U/L 9-52 U/L Final Nor [facility] L ab (Internal) : [address] ? ? S ? Ast (Sgot) 28 U/L 14-36 U/L Final No rth [facility] L ab (Internal) : [address] t 07/18/2017 CBC W/ BLD Low Wbc 4.9 5.0-10.0 Final Nort h Auto Diff 10*3/uL 10*3/uL [facility] L ab (Internal) : [address] ? ? BLD ? Rbc 4.41 4.10-5.30 Final [place] 10*6/uL 10*6/uL [facility] L ab (Internal) : [address] ? ? BLD ? Hgb 13.6 g/dL 12.0-16.0 Final Nort h g/dL [facility] L ab (Internal) : [address] ? ? BLD ? Hct 41.5 % 37.0-47.0 Final [place] % [facility] Hospital L ab (Internal) : [address] ? ? BLD ? Mcv 94.1 fL 80.0-96.0 Final [place] fL [facility] L ab (Internal) : [address] ? ? BLD ? Mch 30.8 pg 26.0-32.0 Final [place] pg [facility] L ab (Internal) : [address], [place] ? ? BLD ? Mchc 32.8 g/dL 31.0-35.0 Final Nort h g/dL [facility] Hospital L ab (Internal) : [address] ? ? BLD ? Rdw 13.3 % 11.5-14.5 Final [facility] Hospital L ab (Internal) : [address] ? ? BLD ? Plt 222 130-450 Final [place] 10*3/uL 10*3/uL [facility] Hospital L ab (Internal) : [address] , [place] [address] ? ? BLD ? Anc 3.10 ? Final [place] 10*3/uL [facility] Hospital L ab (Internal) : [address] ? ? BLD ? Neutro 63.3 % 40.0-75.0 Final [facility] L ab (Internal) : [address] ? ? BLD ? Lymph 23.9 % 20.0-50.0 Final [facility] L ab (Internal) : [address] ? ? BLD ? [place] 9.6 % 2.0-10.0 Final [facility] L ab (Internal) : [address] ? ? BLD ? Eos 2.4 % 1.0-6.0 % Final [facility] Hospital L ab (Internal) : [address] ? ? BLD ? Baso 0.6 % 0.0-1.0 % Final [facility] Hospital L ab (Internal) : [address] ? ? BLD ? Ig 0.2 % 0.0-0.9 % Final [facility] L ab (Internal) : [address] Past Encounters 03/03/2020 Kidney Stone Weston Guevara MD: [address] [facility] [place] [address], Ph. 12/29/2019 Abdominal Pain Aj Doherty MD: [address] [facility] [place] [address], Ph. 04/02/2019 Gynecologic Examination; Lump in Left Br east Janet Marysol Leo, SHAI: [address] [place] [address], Ph. Social History Tobacco Smoking Status Never Smoker Vaccine List Vaccine Type influenza, seasonal, injectable, preserv ative free 05/24/2010 MMR 10/27/2010?0.5 mL Tdap 12/05/2010?0.5 mL 05/10/2016?0.5 mL Plan of Care Reminders Provider Appointments None ? ? recorded. Lab None ? ? recorded. Referral None ? ? recorded. Procedures None ? ? recorded. Surgeries None ? ? recorded. Imaging None ? ? recorded. Vitals 03/03/2020 02:30PM Office 15 Weight Blood Pressure 64.09 kg 124/82 mm[Hg] 12/29/2019 01:30PM Office 15 Blood Pressure 128/80 mm[Hg] 04/02/2019 09:20AM HME 30 Weight Blood Pressure 70.81 kg 124/76 mm[Hg] 08/13/2016 Weight Blood Pressure 71.62 kg 118/84 mm[Hg] 03/24/2015 Height Weight Blood Pressure 160.02 cm 70.81 kg 116/72 mm[Hg] 08/08/2014 Height Weight Blood Pressure 160.02 cm 69.99 kg 142/74 mm[Hg] 12/17/2011 Height Weight Blood Pressure 160.02 cm 59.87 kg 132/68 mm[Hg] 12/28/2010 Blood Pressure 120/70 mm[Hg] 12/06/2010 Weight Blood Pressure 63.05 kg 122/62 mm[Hg] 12/05/2010 Height Weight Blood Pressure 160.02 cm 63.08 kg 124/78 mm[Hg] 04/04/2010 Height Weight 160.02 cm 59.87 kg
--- NOTE | 2020-07-11 16:00 | HOLTER_ITS ---
APPROVED REPORT Exam Type: HOLTER MONITOR APPLICATION Reason for Test: chest pressure Patient Location: O Conclusion There is a 48-hour Holter monitor ordered for indication of chest pressure. The patient was normal sinus rhythm for the majority of the recording with an average heart rate of 8 4 bpm. There were no episodes of supraventricular tachycardia nor any episodes of ventricular tachycardia. There were rare PACs and rare PVCs. There were no episodes of atrial fibrillation, no pauses greater than 3 seconds and no evidence of hi gh degree heart block. Patient diary events were associated with sinus rhythm, sinus tachycardia and occasional PVC.
== END 2020-08-06 23:59 | disposition home or self-care (01) ==
LOC: RT 07:17
PROVIDERS: PCP Physician Assistant; Visit Provider Physician Assistant
DX: R07.9 Chest pain, unspecified (principal)
CPT/HCPCS: 93225; 93226

== ENCOUNTER 2020-07-28 19:14 | Outpatient (REF) | payer MEDICAID, SELFPAY ==
[2020-07-28 16:19] LABS: Calculated LDL 143 mg/dL (<100); Cholesterol 231 mg/dL (<200); HDL Cholesterol 74 mg/dL (40-60); Triglyceride 71 mg/dL (<150)
== END 2020-07-28 19:15 | disposition home or self-care (01) ==
LOC: NCHCN 19:14
PROVIDERS: PCP Physician Assistant; Visit Provider Physician Assistant
DX: Z13.220 Encounter for screening for lipoid disorders (principal); Z82.49 Family history of ischemic heart disease and other diseases of the circulatory system
CPT/HCPCS: 80061

== ENCOUNTER 2022-10-16 01:01 | Outpatient (CLI) | payer MEDICAID, SELFPAY ==
--- NOTE | 2022-10-16 15:45 | DI.MAMMO_ITS ---
Exam(s) MAMMO SCREENING EXAM: MAMMO SCREENING CLINICAL HISTORY: SCREENING, Z12.31, PREVENTATIVE HEALTH CARE, Z00.00 TECHNIQUE: Mammograms were interpreted according to the usual protocol including computer analysis w [employer] CAD system, tomosynthesis and C-view imaging. COMPARISON: 2019 from [facility]. FINDINGS: The breasts are composed of heterogeneously dense fibroglandular densities, Breast Density category C . No suspicious masses or suspicious microcalcifications are seen. No skin thickening or abnormal axillary lymph nodes are seen. There has been no significant change from prior exams. IMPRESSION: BI-RADS Category 1, Negative mammogram. Yearly screening mammography is recommended. Breast Density Category C, heterogeneously Dense. The mammogram demonstrates the patient's breast tissue is dense. Dense breast tissue is very common a nd is not abnormal but dense breast tissue can make it harder to find cancer on a mammogram. Also, de nse breast tissue may increase breast cancer risk. This information about the result of the mammogram report was provided to the patient to raise their awareness. Use this report when you speak with the patient about their risks for breast cancer, which includes their family history. At that time, you may recommend additional screening tests (Ultrasound or MRI) as they might be useful based on their r isk. A negative radiographic report should not delay biopsy if a dominant or clinically suspicious mass is present. Up to ten percent of cancers are not identified on mammography. A negative report may reinforce clinical impression. Adenosis and dense breasts may obscure an underlying neoplasm. False positive reports average 6 to 10%.
== END 2022-10-16 01:21 ==
PROVIDERS: PCP Physician Assistant; Visit Provider Physician Assistant
DX: Z12.31 Encounter for screening mammogram for malignant neoplasm of breast (principal)
CPT/HCPCS: 77063; 77067

== ENCOUNTER 2024-01-05 16:28 | Emergency (ER) | payer MEDICAID, SELFPAY ==
[2024-01-05] VITALS (30 sets, daily range): BP systolic 143–166; BP diastolic 83–104; PULSE 82–105; RESP 12–27; TEMP 36.3–36.9; O2SAT 96–100
--- NOTE | 2024-01-05 16:15 | RT.EKG_ITS ---
APPROVED REPORT Exam: Resting ECG Reason for Exam: Chest Pain Patient Location: E HR:102 bpm ECG Measurements Heart Rate 102 AXIS TX 142 P 42 QRSd 73 QRS 29 QT 335 T -4 QTc 435 Conclusion Sinus tachycardia...rate> 99 Anterior infarct, old...Q >40mS, abnormal ST-T, V2-V5 Borderline ST depression, diffuse leads...ST <-0.07mV, ant/lat/inf sinus tachycardia, normal axis, noralm intervas, t wave inversion III
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
[2024-01-05 16:53] LABS: Abs Immature Grans 0.02 10^3/uL (0.0-0.06); Absolute Basophil Count 0.06 10^3/uL (0.0-0.2); Absolute Eosinophil Count 0.05 10^3/uL (0.0-0.7); Absolute Lymphocyte Count 1.26 10^3/uL (1.2-3.4); Absolute Monocyte Count 0.45 10^3/uL (0.1-0.8); Eosinophils % 0.9 %; HGB 14.3 g/dL (11.2-15.7); Immature Grans % 0.3 %; MCH 32.3 pg (27.0-33.0); MCHC 33.3 % (32.0-36.0); MCV 97 fL (80-95); MPV 9.8 fL (8.0-11.0); Monocytes % 7.8 %; Platelet Count 281 10^3/uL (130-400); RBC 4.43 10^6/uL (3.93-5.22); RDW 13.2 % (11.7-14.6); RDW-SD 47.5 fL; WBC 5.74 10^3/uL (4.4-10.8)
[2024-01-05] MEDS: Normal Saline 1,000 ML 1000 ML IV (17:01)
[2024-01-05] MEDS: LORazepam 2 MG/ML VIAL 0.5 MG IVP (17:01)
[2024-01-05 17:06] LABS: PTT Activated 22.5 sec (23.6-32.8)
[2024-01-05 17:14] LABS: ALT 17 U/L (14-59); AST 18 U/L (15-37); Albumin 4.4 g/dL (3.4-5.0); Alkaline Phosphatase 70 U/L (46-116); Anion Gap 10.5 mmol/L (3-11); BUN 9 mg/dL (7-18); Bilirubin, Total 0.47 mg/dL (0.2-1.0); CO2 28.5 mmol/L (21.0-32.0); Calcium 9.3 mg/dL (8.5-10.1); Chloride 105 mmol/L (98-107); Estimated GFR 71.24 (mL/min/1.73m2); Glucose 116 mg/dL (74-106); Potassium 4.1 mmol/L (3.5-5.1); Sodium 144 mmol/L (136-145); Troponin I < 50 ng/L (< or =60)
[2024-01-05 17:17] LABS: NT-proBNP 21 pg/mL (<300)
--- NOTE | 2024-01-05 17:35 | DI.RAD_ITS ---
Exam(s) XR CHEST 2V PA LATERAL EXAM: XR CHEST 2V PA LATERAL CLINICAL HISTORY: chest pain TECHNIQUE: 2D digital imaging was performed of the chest. Two images were obtained. PA and lateral views were obtained. COMPARISON: No exams were available for comparison FINDINGS: MEDIASTINUM: Normal. HEART: Normal. PULMONARY VASCULATURE: Normal. LUNGS: Clear. PLEURAL SPACE: No pleural effusion or pneumothorax. BONE:Within normal limits for the patient's age. OTHER FINDINGS:Normal. IMPRESSION: No acute pulmonary findings. DATA REPOSITORY: RADIATION DOSE DELIVERED:
--- NOTE | 2024-01-05 18:32 | PDOC.MHCN ---
Date of service: 01/05/24 Time of Service: 18:21 PHQ-9 Over the last 2 weeks, how often have you been bothered by any of the following problems? 1. Little interest or pleasure in doing things: not at all 2. Feeling down, depressed, or hopeless: several days 3. Trouble falling or staying asleep, or sleeping too much: not at all 4. Feeling tired or having little energy: several days 5. Poor appetite or overeating: several days 6. Feeling bad about yourself - or that you are a failure or have let yourself and your family down: more than half the days 7. Trouble concentrating on things, such as reading the newspaper or watching television: not at all 8. Moving or speaking so slowly that other people could have noticed? - Or the opposite - being so fidgety or restless that you have been moving around a lot more than usual: not at all 9. Thoughts that you would be better off or of hurting yourself in some way: not at all Total score: 5 If you checked off any problems, how difficult have these problems made it for you to do your work, take care of things at home, or get along with other people?: somewhat difficult Source: Developed by Drs. Yamil Oconnor, Eleanor Nguyen, Keon Johnston and colleagues, with an educational dulce from [employer]. Suicide Severity Rate CSSRS Have you wished you were or wished you could go to sleep and not wake up?: No Have you actually had any thoughts of killing yourself?: No CSSRS3 Have you ever done anything, started to do anything or prepared to do anything to end your life?: No Screening Score Total Score: 0 Screening: Negative Mental Health Emergency Note Release [facility] release signed:: No Reason for Visit Patito is being seen today due to increased anxiety throughout the weekend and having an anxiety attack today. Patito is being seen via Zoom. In the last 2 weeks has the pt presented for ES prior to today?: No Client Information Client is: New Well Housed: Yes Non Suicidal Self Injury Current: No History: No Safety Risk/Harm to Self or Others Current Ideation to Harm Self or Others: No Risk: Does risk to harm exist?: No Risk: N/A Duty to warn indicated: No Asssessment/Mental Status Appearance: Unremarkable Attitude: Passive and Guarded Behavior: Unremarkable Speech: Normal Affect: Cogruent with mood Mood: Stressed, Anxious and Irritable Thought process: Unremarkable Hallucinations: No evidence Delusions: No evidence Attention: Unremarkable Perception: Not impaired Orientation: Fully orientated Memory: Intact Insight: Good Judgement: Good Neurovegetative Symptoms Sleep: No change Appetitie: Decrease Interests: No change Energy: No change Libido: Not applicable Substance Use: Do you use nicotine?: No Have you used substances in the last 7 days?: No Additional Issues: Assaultive/Threatening Behavior: No Medical Concerns: No Client engaged in active self harm w/weapon: No Threatening to run away: No Child reported abuse/neglect: No Voluntarily presenting for services: Yes Domestic violence is a concern: No Extreme Psychosis or extreme behavior is present: No Impression Patito presented to [facility] due to increased anxiety and an anxiety attack. Patito reports that she has a lot going on including her living and family situation. Patito recently from her partner of fifteen years who she has three children with. Her children are 7,9, and 13. Patito reports due to the separation she has to leave her home and is attempting to find housing, but struggling to do so. Patito reports things have not been easy for her or her relationship for about the last 1.5 years if not longer. Patito reports at times, this separation has caused her to feel like a bad mom due to not being able to stay with their father. Patito reports she does not always feel this way, but she does every day feel anxious and/or worried. Patito reports a previous diagnosis of anxiety and depression but mostly anxiety. Patito does not take medications for her mental health and does not report a history of hospitalization. Patito denies current or previous thoughts of wanting to harm herself or anyone else. Patito reports having a private therapist who she sees regularly and has seen for years, but reports needing to call and schedule her appointment. Patito reports this has been on her to do list, but she has not done so yet; but will call in the morning. Patito reports no wanting services from [facility] at this time and not feeling the need for a safety plan or check ins with [facility]. Patito will check in with her therapist about an appointment and this assessment. This creative services writer shared with Patito [facility] phone number and [phone] to ensure she would have these resources if needed. This creative services writer also asked [facility] to include this in her discharge paperwork. Resources [employer] reviewed and given:: [phone] and Community therapist Plan/Disposition Recommended Disposition: Therapy (Patito will call her therapist tomorrow to schedule an appointment). Plan: Patito declined the need for a safety plan as she already has a therapist and the outpatient services she needs. Patito is not endorsing SI, HI, NSSI so a safety plan was not pushed. Patito was provided with our phone number as well as [phone] and it was asked for this to go in discharge paperwork as well. Patito does not need continued services from mental health at this time. Person reported agreement to plan: Yes Reports/communication Outcome discussed with: ED/Personnel
== END 2024-01-05 20:54 | disposition home or self-care (01) ==
PROVIDERS: Emergency Provider Emergency Medicine; PCP Physician Assistant
DX: R41.9 Unspecified symptoms and signs involving cognitive functions and awareness (principal); R07.89 Other chest pain
CPT/HCPCS: 00123; 80053; 81025; 93005; 96127; 96361; 96374; 99285; 71046; 83880; 84484; 85025; 85610; 85730; 93010; 99284; J2060

== ENCOUNTER 2024-04-16 09:30 | Outpatient (CLI) | payer MEDICAID, SELFPAY ==
--- NOTE | 2024-04-16 09:27 | DI.RAD_ITS ---
Exam(s) XR HIP RT COMPLETE AP PELVIS EXAM: XR HIP RT COMPLETE AP PELVIS CLINICAL HISTORY: RIGHT HIP PAIN. TECHNIQUE: 2D digital imaging was performed of the right hip. Two images were obtained. AP pelvis a nd lateral right hip views were obtained. COMPARISON: CR XR ABDOMEN 2V AP/UPR OR DECUB from 12/26/2019 FINDINGS: BONES: No acute fracture is present. No bony destructive lesion is seen. JOINTS: No dislocation present. The hips are well maintained. The visualized sacroiliac joints and s ymphysis pubis appear unremarkable. SOFT TISSUE: Normal. IMPRESSION: Unremarkable radiographs of the right hip. Unremarkable radiographs of the pelvis. DATA REPOSITORY: RADIATION DOSE DELIVERED:
== END 2024-04-16 09:31 | disposition home or self-care (01) ==
LOC: DIORS 09:30
PROVIDERS: PCP Physician Assistant; Referring Provider Physician Assistant; Visit Provider Physician Assistant
DX: M25.551 Pain in right hip (principal)
CPT/HCPCS: 73502